=== PATIENT | male | born 1980 | race Caucasian/White ===

== ENCOUNTER 2020-12-19 13:33 | Outpatient (REF) | payer OTHER, SELFPAY | END 2020-12-19 13:34 | disposition home or self-care (01) | LOC: HO.LAB 13:33 | PROVIDERS: Visit Provider Internal Medicine | DX: Z20.822 Contact with and (suspected) exposure to COVID-19 (principal) | CPT/HCPCS: 36415; C9803; U0003 ==

== ENCOUNTER 2021-05-03 12:34 | Outpatient (REF) | payer OTHER, SELFPAY ==
[2021-05-03 14:47] LABS: Alanine Aminotransferase 27 U/L (0-40); Alkaline Phosphatase 147 U/L (39-117); Anion Gap 17 (12-20); Aspartate Amino Transferase 47 U/L (5-37); Bilirubin Direct 0.3 mg/dL (0.0-0.5); Bilirubin Total 0.8 mg/dL (0.0-1.0); Blood Urea Nitrogen 8 mg/dL (9-16); Calcium 9.6 mg/dL (8.4-10.2); Carbon Dioxide 30 mmol/L (22-29); Chloride 95 mmol/L (96-108); Estimated Glomerular Filt Rate > 60; Glucose Random 133 mg/dL (60-115); Potassium 4.4 mmol/L (3.3-5.1); Sodium 138 mmol/L (135-145); Total Protein 8.5 g/dL (6.5-8.0)
[2021-05-04 11:47] LABS: LDL Cholesterol Direct 144 mg/dL (<100)
== END 2021-05-03 12:35 | disposition home or self-care (01) ==
LOC: HO.HMGCLDS 12:34
PROVIDERS: PCP Internal Medicine; Visit Provider Internal Medicine
DX: I10 Essential (primary) hypertension (principal)
CPT/HCPCS: 36415; 80048; 80076; 83721

== ENCOUNTER 2022-02-06 13:39 | Outpatient (REF) | payer OTHER, SELFPAY ==
[2022-02-06 16:36] LABS: MANUAL DIFF FLAG NO
[2022-02-06 16:39] LABS: Basophils Percent Auto 0.4 % (0-2); Eosinophils Absolute Auto 0.1 X10*3/uL (0.0-0.4); Eosinophils Percent Auto 1.2 % (0-4); Hemoglobin 13.6 g/dl (14.0-18.0); Imm Gran Abs Auto 0.01 X10*3/uL (0.00-0.03); Imm Gran Pct Auto 0.1 % (0.0-0.4); Lymphocytes Absolute Auto 2.2 X10*3/uL (1.2-4.9); Lymphocytes Percent Auto 29.6 % (20-40); Mean Corpuscular HGB Conc 33.2 g/dl (31.0-36.0); Mean Corpuscular Hemoglobin 33.3 pg (27.0-33.0); Mean Corpuscular Volume 100.2 fL (80.0-98.0); Mean Platelet Volume 9.9 fL (9.4-12.4); Monocytes Absolute Auto 0.5 X10*3/uL (0.1-1.2); Monocytes Percent Auto 7.1 % (2-11); Neutrophils Absolute Auto 4.5 x10*3/uL (2.0-8.3); Neutrophils Percent Auto 61.6 % (45-73); Platelet Count 208 X10*3/uL (160-400); Red Blood Count 4.09 X10*6/uL (4.60-5.80); Red Cell Distribution Width 12.5 % (11.0-16.0); White Blood Count 7.3 X10*3/uL (4.8-10.8)
[2022-02-06 16:48] LABS: Alanine Aminotransferase 12 U/L (0-40); Albumin Level 3.9 g/dL (3.5-5.0); Alkaline Phosphatase 97 U/L (39-117); Anion Gap 13 (12-20); Aspartate Amino Transferase 19 U/L (5-37); Bilirubin Total 0.5 mg/dL (0.0-1.0); Blood Urea Nitrogen 12 mg/dL (9-16); Calcium 9.2 mg/dL (8.4-10.2); Carbon Dioxide 28 mmol/L (22-29); Chloride 102 mmol/L (96-108); Cholesterol 177 mg/dL; Estimated Glomerular Filt Rate > 60; Glucose Fasting 90 mg/dL (60-99); HDL Cholesterol 39 mg/dL; LDL Cholesterol Calculated 86 mg/dl; Potassium 3.9 mmol/L (3.3-5.1); Sodium 139 mmol/L (135-145); Total Protein 7.4 g/dL (6.5-8.0); Triglycerides 263 mg/dL
[2022-02-06 17:08] LABS: TSH reflex Free T4 2.41 uIU/mL (0.32-4.0)
== END 2022-02-06 13:40 | disposition home or self-care (01) ==
LOC: HO.HMGCLDS 13:39
PROVIDERS: PCP Internal Medicine; Visit Provider Internal Medicine
DX: I10 Essential (primary) hypertension (principal); I82.401 Acute embolism and thrombosis of unspecified deep veins of right lower extremity
CPT/HCPCS: 36415; 80053; 80061; 84443; 85025

== ENCOUNTER 2022-02-20 15:03 | Outpatient (REF) | payer OTHER, SELFPAY ==
--- NOTE | ~2022-02-20 | US_ITS ---
EXAMINATION: US VENOUS ULTRASOUND WITH DOPPLER LOWER EXTREMITY, RIGHT CLINICAL INFORMATION: History of DVT. On anticoagulation for 6 months. COMPARISON: None TECHNIQUE: Ultrasound of the deep veins is performed from the hip to the calf with compression sonography and color and pulse Doppler assessment. Spectral analysis with color-flow imaging is performed. FINDINGS: There is normal venous compression and respiratory variation and augmented flow. The visualized common femoral vein, superficial femoral vein, profunda femoral vein, popliteal vein, and the trifurcation region shows no evidence of deep venous thrombosis. There is a small right May's cyst measuring 4.1 x 1.5 x 1.6 cm. Incidental finding of a small right inguinal lymph node measuring 2.3 x 0.8 cm. If the patient's symptoms persist, followup ultrasound in 5 days 7 days might be of value to exclude proximal propagation from a non-visualized calf vein. US/US venous duplex LE RT IMPRESSION: No DVT demonstrated in the right lower extremity.
== END 2022-02-20 15:04 | disposition home or self-care (01) ==
LOC: HO.US 15:03
PROVIDERS: PCP Internal Medicine; Visit Provider Internal Medicine
DX: I82.401 Acute embolism and thrombosis of unspecified deep veins of right lower extremity (principal)
CPT/HCPCS: 93971

== ENCOUNTER 2023-07-03 13:43 | Outpatient (AMB) | payer OTHER, SELFPAY ==
--- NOTE | 2023-07-03 13:45 | MHC.PC.OV ---
Vital Signs 07/03/23 13:47 Height 6 ft 1 in Weight 176 lb BMI 23.2 BP 118/90 H Blood Pressure Location Lt brachial Position Sitting Pulse 117 H Pulse Source Pulse Oximeter Pulse Oximetry (%) 96 Intake Visit Reasons: follow up/med refill Allergies vancomycin Allergy (Unknown, Verified 07/03/23 13:48) anaphylaxis Medication List - Last Reconciled 07/03/23 by Angie Padilla MD atenolol 50 mg PO DAILY 90 days methadone 120 mg PO DAILY Tobacco use date assessed: 07/03/23 Dental Screening Dental Screen Date: 07/03/23 Did you have a dental visit in the last 12 months?: Yes Did you have a dental problem in the last 6 months where you did not have access to dental care?: Yes Was dental information given to patient?: Patient has dentist HPI follow up/med refill HPI Details Patient is a 42-year-old gentleman who has return after more than a year Patient was on atenolol 50 mg which he stopped taking when he lost a lot of weight Patient started using intravenous heroin and cocaine Currently he is in rehab and is on methadone Patient says that he was very depressed and he still is depressed I have sent message to our behavior health coordinator to reach out to patient. Meanwhile I have ordered labs for him I have also ordered STD screening His blood pressure is 118/90 but his heart rate is 117. I have sent atenolol 25 mg because of his tachycardia. He is to return in 4 weeks for follow-up [facility] Medical History HTN (hypertension) Surgical History History of arm fracture Family History Father Mesothelioma Paternal Grandmother Lung cancer Maternal Grandmother Kidney disease HTN (hypertension) Other Substance use disorder Social History Housing: Apartment Alcohol intake: current Alcohol intake frequency: a few times a week Patient Tobacco Use Status: Current everyday Tobacco user Cigarette Packs Per Day: 0.5 e-Cigarette/Vaping Use: Never Used Substance Use Type: IV Drugs Current occupational status: employed Cognitive needs: No Hearing needs: No Vision needs: No Questionnaire PHQ-9 Over the last 2 weeks, how often have you been bothered by any of the following problems? 1. Little interest or pleasure in doing things: not at all 2. Feeling down, depressed, or hopeless: not at all 3. Trouble falling or staying asleep, or sleeping too much: not at all 4. Feeling tired or having little energy: not at all 5. Poor appetite or overeating: not at all 6. Feeling bad about yourself - or that you are a failure or have let yourself or your family down: not at all 7. Trouble concentrating on things, such as reading the newspaper or watching television: not at all 8. Moving or speaking so slowly that other people could have noticed. Or the opposite - being so fidgety or restless that you have been moving around a lot more than usual: not at all 9. Thoughts that you would be better off or of hurting yourself in some way: not at all Total score: 0 Source: Developed by Drs. Andrew Simmons, Yulisa Negrete, Cisco Colunga and colleagues, with an educational yolie from [employer]. Thrive Questionnaire Date Thrive assessed: 07/03/23 I am a: Patient What is your living situation today?: I have a steady place to live Within the past 12 months, did the food you bought not last and you didn't have the money to get more?: Never true Within the past 12 months, did you worry whether your food would run out before you got money to buy more?: Never true Do you have trouble paying for medicines?: No Do you have trouble getting transportation to medical appointments?: No Do you have trouble paying your heating and electricity bill?: No Do you have trouble taking care of your child, family member or friend?: No Do you have trouble with day-to-day activities such as bathing, preparing meals, shopping, managing finances, etc.?: No Are you currently unemployed and looking for a job?: No Are you interested in more education?: No AUDIT C Alcohol Use Questionnaire (AUDIT-C) 1. How often do you have a drink containing alcohol?: 2-3 times a week 2. How many drinks containing alcohol do you have on a typical day when you are drinking?: 1 or 2 3. How often do you have six or more drinks on one occasion?: Never Total Score: 3 LAINE-7 AMB Questionnaire LAINE-7 Date LAINE - 7 assessed: 07/03/23 Feeling nervous, anxious, or on edge: 0 = Not at all Not being able to stop or control worryin = Not at all Worrying too much about different things: 0 = Not at all Trouble relaxin = Not at all Being so restless that it is hard to sit still: 0 = Not at all Becoming easily annoyed or irritable: 0 = Not at all Feeling afraid as if something awful might happen: 0 = Not at all Total LAINE-7 score (0-4 normal; 5-9 mild; 10-14 moderate; 15-21 severe): 0 Source: Developed by Drs. Andrew Simmons, Yulisa Negrete, Cisco Colunga and colleagues, with an educational yolie from [employer]. Review of Systems Const Denies chills and Denies fever(s) ENT Denies epistaxis and Denies nasal discharge Card Denies chest pain Resp Denies chest congestion, Denies cough and Denies hemoptysis GI Denies diarrhea and Denies nausea Skin/Breast Denies rash Neuro Reports no additional complaints Psych Reports no additional complaints Endo Reports no additional complaints Physical exam (Primary Care) Vital Signs: Last Vital Signs Pulse 117 H 07/03/23 13:47 BP 118/90 H 07/03/23 13:47 Pulse Ox 96 07/03/23 13:47 BMI result Body Mass Index 23.2 Tobacco/Smoking Status: Tobacco use Status Tobacco use date assessed 07/03/23 07/03/23 13:51 Patient Tobacco Use Status Current everyday Tobacco 07/03/23 13:45 e-Cigarette/Vaping Use Never Used 07/03/23 13:51 PHQ-9: PHQ-9 Score PHQ-9: Total score 0 07/03/23 14:03 Thrive Assessment: Date of Thrive Assessment Date Thrive assessed 07/03/23 07/03/23 13:51 Const General: cooperative, comfortable and no acute distress Orientation/consciousness: patient oriented x3 HENMT Head: Yes normocephalic Eyes General: appearance normal, both eyes and all related structures Neck Neck: Yes supple Resp Effort & Inspection: normal respiratory effort, no cough and no stridor Cardio Rhythm: regular rhythm Heart sounds: S1 normal heart sound present and S2 normal heart sound present Skin General skin exam: turgor normal Neuro General: patient oriented x3, tone normal and moves all extremities Extrem Right lower extremity: no edema Left lower extremity: no edema Assessment and Plan Assessment & Plan (1) Hypertension, essential: Code(s): I10 - Essential (primary) hypertension (2) Intravenous drug abuse: Code(s): F19.10 - Other psychoactive substance abuse, uncomplicated (3) Cocaine abuse: Code(s): F14.10 - Cocaine abuse, uncomplicated (4) Major depression, recurrent: Code(s): F33.9 - Major depressive disorder, recurrent, unspecified Plan Patient is a 42-year-old gentleman who has return after more than a year Patient was on atenolol 50 mg which he stopped taking when he lost a lot of weight Patient started using intravenous heroin and cocaine Currently he is in rehab and is on methadone Patient says that he was very depressed and he still is depressed I have sent message to our behavior health coordinator to reach out to patient. Meanwhile I have ordered labs for him I have also ordered STD screening His blood pressure is 118/90 but his heart rate is 117. I have sent atenolol 25 mg because of his tachycardia. He is to return in 4 weeks for follow-up Orders: Orders Comprehensive [place]. Panel Fast Today F14.10 - Cocaine abuse, uncomplicated, F19.10 - Other psychoactive substance abuse, uncomplicated, F33.9 - Major depressive disorder, recurrent, unspecified, I10 - Essential (primary) hypertension Lipid Panel Today F14.10 - Cocaine abuse, uncomplicated, F19.10 - Other psychoactive substance abuse, uncomplicated, F33.9 - Major depressive disorder, recurrent, unspecified, I10 - Essential (primary) hypertension TSH reflex Free T4 Today F14.10 - Cocaine abuse, uncomplicated, F19.10 - Other psychoactive substance abuse, uncomplicated, F33.9 - Major depressive disorder, recurrent, unspecified, I10 - Essential (primary) hypertension Complete Blood Count Auto Diff Today F14.10 - Cocaine abuse, uncomplicated, F19.10 - Other psychoactive substance abuse, uncomplicated, F33.9 - Major depressive disorder, recurrent, unspecified, I10 - Essential (primary) hypertension Hepatitis A,B,C Profile Today F14.10 - Cocaine abuse, uncomplicated, F19.10 - Other psychoactive substance abuse, uncomplicated, F33.9 - Major depressive disorder, recurrent, unspecified, I10 - Essential (primary) hypertension Herpes Simplex Virus Ab IgG Today F14.10 - Cocaine abuse, uncomplicated, F19.10 - Other psychoactive substance abuse, uncomplicated, F33.9 - Major depressive disorder, recurrent, unspecified, I10 - Essential (primary) hypertension HIV Ab/Ag Today F14.10 - Cocaine abuse, uncomplicated, F19.10 - Other psychoactive substance abuse, uncomplicated, F33.9 - Major depressive disorder, recurrent, unspecified, I10 - Essential (primary) hypertension Syphilis Screen Today F14.10 - Cocaine abuse, uncomplicated, F19.10 - Other psychoactive substance abuse, uncomplicated, F33.9 - Major depressive disorder, recurrent, unspecified, I10 - Essential (primary) hypertension Medications: Refilled atenolol 50 mg PO DAILY 90 tabs 0RF 90 days I10 - Essential (primary) hypertension Coding Level of Care Code Est Pt Level 4 (98421) Diagnoses Hypertension, essential I10 Intravenous drug abuse F19.10 Cocaine abuse F14.10 Major depression, recurrent F33.9
[2023-07-03 13:47] VITALS: BP 118/90; PULSE 117; O2SAT 96; BMI 23.2
== END 2023-07-03 14:11 | disposition home or self-care (01) ==
PROVIDERS: PCP Internal Medicine; Visit Provider Internal Medicine
DX: I10 Essential (primary) hypertension (principal); F19.10 Other psychoactive substance abuse, uncomplicated; F14.10 Cocaine abuse, uncomplicated; F33.9 Major depressive disorder, recurrent, unspecified
CPT/HCPCS: 99214

== ENCOUNTER 2023-07-03 14:06 | Outpatient (REF) | payer OTHER, SELFPAY ==
[2023-07-03 16:10] LABS: MANUAL DIFF FLAG NO
[2023-07-03 16:15] LABS: Basophils Percent Auto 0.6 % (0-2); Eosinophils Percent Auto 0.3 % (0-4); Hematocrit 44.6 % (42.0-52.0); Hemoglobin 15.1 g/dl (14.0-18.0); Imm Gran Abs Auto 0.02 X10*3/uL (0.00-0.03); Imm Gran Pct Auto 0.6 % (0.0-0.4); Lymphocytes Absolute Auto 0.8 X10*3/uL (1.2-4.9); Lymphocytes Percent Auto 22.1 % (20-40); Mean Corpuscular HGB Conc 33.9 g/dl (31.0-36.0); Mean Corpuscular Hemoglobin 29.8 pg (27.0-33.0); Mean Platelet Volume 10.9 fL (9.4-12.4); Monocytes Absolute Auto 0.2 X10*3/uL (0.1-1.2); Monocytes Percent Auto 5.2 % (2-11); Neutrophils Absolute Auto 2.5 x10*3/uL (2.0-8.3); Neutrophils Percent Auto 71.2 % (45-73); Platelet Count 136 X10*3/uL (160-400); Red Blood Count 5.07 X10*6/uL (4.60-5.80); White Blood Count 3.4 X10*3/uL (4.8-10.8)
[2023-07-03 16:39] LABS: Alanine Aminotransferase 76 U/L (0-40); Albumin Level 3.2 g/dL (3.5-5.0); Alkaline Phosphatase 396 U/L (39-117); Anion Gap 15 (12-20); Aspartate Amino Transferase 95 U/L (5-37); Bilirubin Total 0.9 mg/dL (0.0-1.0); Blood Urea Nitrogen 13 mg/dL (9-16); Calcium 9.3 mg/dL (8.4-10.2); Carbon Dioxide 25 mmol/L (22-29); Chloride 96 mmol/L (96-108); Cholesterol 124 mg/dL; Estimated Glomerular Filt Rate > 60; Glucose Fasting 86 mg/dL (60-99); HDL Cholesterol 17 mg/dL; LDL Cholesterol Calculated 68 mg/dl; Potassium 4.2 mmol/L (3.3-5.1); Sodium 132 mmol/L (135-145); Triglycerides 198 mg/dL
[2023-07-04 05:44] LABS: HBS Num1 423.18 mIU/mL (0-7.99); HBc Num1 0.24 S/CO (0.00-0.79); HIV AB/AG Nonreactive (Nonreactive); HIV Num 1 0.06 S/CO (0.00-0.99); Hepatitis A Antibody IgM 0.56 Index (0-0.79); Hepatitis B Core Antibody Nonreactive (Nonreactive); Hepatitis B Surface Antigen Negative (Negative); ~HepC Num1 14.22 S/CO (0.00-0.79); ~Hepatitis A Antibody IgM Nonreactive (Nonreactive); ~Hepatitis B Surface Antibody REACTIVE (Nonreactive); ~Hepatitis C Antibody Reactive (Nonreactive)
[2023-07-05 05:06] LABS: Syphilis Screen Nonreactive (Nonreactive)
[2023-07-05 07:17] LABS: Herpes Simplex Type 2 IgG 6.25 index
== END 2023-07-03 14:07 | disposition home or self-care (01) ==
LOC: HO.HMGCLDS 14:06
PROVIDERS: PCP Internal Medicine; Visit Provider Internal Medicine
DX: Z11.4 Encounter for screening for human immunodeficiency virus [HIV] (principal); F14.10 Cocaine abuse, uncomplicated; F19.10 Other psychoactive substance abuse, uncomplicated; F33.9 Major depressive disorder, recurrent, unspecified; I10 Essential (primary) hypertension
CPT/HCPCS: 36415; 80053; 80061; 84443; 85025; 86695; 86696; 86704; 86706; 86709; 86780; 86803; 87340; 87389

== ENCOUNTER 2024-05-14 09:34 | Outpatient (AMB) | payer OTHER, SELFPAY ==
[2024-05-14 09:42] VITALS: BP 110/72; PULSE 71; TEMP 36.2; O2SAT 95; BMI 26.4
--- NOTE | 2024-05-14 09:42 | AM.OFFWIN_ITS ---
Intake Vital Signs 05/14/24 09:42 Height 6 ft 1 in Weight 200 lb BMI 26.4 BP 110/72 Blood Pressure Location Lt brachial Position Sitting Pulse 71 Pulse Source Pulse Oximeter Temp 97.1 F Temp Source Temporal Artery Scan Pulse Oximetry (%) 95 Oxygen Delivery Method Room Air Intake Visit Reasons: EP Ekg/ok per Linda Intake Note: pt is here today for EKG Patient Tobacco Use Status: Current everyday Tobacco user Allergies vancomycin Allergy (Unknown, Verified 05/14/24 09:49) anaphylaxis Do you need a note to return to daycare/school/sports/work: No HPI HPI Comments History of Present Illness Details Patient is a 43-year-old male who is taking daily methadone and is as irma for an EKG as required by his methadone clinic. Patient states he has been taking methadone for over 10 years and his dose is now greater than 120 mg daily so they require a EKG to be done, he has a request from the clinic in hand today. He denies any symptoms such as lightheadedness, sweating, dizziness, nausea, vomiting or diarrhea. [facility] Medical History HTN (hypertension) Surgical History History of arm fracture Family History Father Mesothelioma Paternal Grandmother Lung cancer Maternal Grandmother Kidney disease HTN (hypertension) Other Substance use disorder Social History Housing: Apartment Alcohol intake: current Alcohol intake frequency: a few times a week Patient Tobacco Use Status: Current everyday Tobacco user Cigarette Packs Per Day: 0.5 e-Cigarette/Vaping Use: Never Used Substance Use Type: IV Drugs Current occupational status: employed Cognitive needs: No Hearing needs: No Vision needs: No Review of Systems Const All systems reviewed & are unremarkable except as noted in HPI and below Physical Exam Vital Signs: Last Vital Signs Temp 97.1 F 05/14/24 09:42 Pulse 71 05/14/24 09:42 BP 110/72 05/14/24 09:42 Pulse Ox 95 05/14/24 09:42 Oxygen Delivery Method Room Air 05/14/24 09:42 BMI result Body Mass Index 26.4 Const General: cooperative, healthy appearing, comfortable, no acute distress and well developed Orientation/consciousness: patient oriented x3 Limitations: no limitations HEENT Head: Yes normal to inspection Eyes General: appearance normal, both eyes and all related structures Neck Neck: Yes normal visual inspection and Yes full ROM Resp Effort & Inspection: normal respiratory effort and able to speak in complete sentences Skin General skin exam: no rashes or lesions noted Neuro General: patient oriented x3 Extrem General: Yes normal to inspection Office Procedures EKG 23535-[id number], Complete Assessment & Plan Assessment & Plan (1) Methadone use: Code(s): F11.90 - Opioid use, unspecified, uncomplicated Plan: EKG in office shows Qtc as 452, advised patient so he can report back to his methadone clinic and continue taking his methadone. Plan See above Coding Level of Care Code Est Pt Level 3 (98842) Diagnoses 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 CPT Codes EKG - CPT: 48193-[id number], Complete ([id number])
== END 2024-05-14 11:55 | disposition home or self-care (01) ==
PROVIDERS: PCP Internal Medicine; Visit Provider Physician Assistant
DX: F11.90 Opioid use, unspecified, uncomplicated (principal)
CPT/HCPCS: 93000; 99213

== ENCOUNTER → 2025-01-05 09:25 | Outpatient (BNVA) | payer OTHER, SELFPAY | PROVIDERS: PCP Internal Medicine; Visit Provider Internal Medicine ==

== ENCOUNTER 2025-09-07 15:28 | Outpatient (AMB) | payer OTHER, SELFPAY ==
[2025-09-07 15:31] VITALS: BP 180/90; PULSE 96; TEMP 36.6; O2SAT 97; BMI 32.3
--- NOTE | 2025-09-07 15:31 | AM.OFFWIN_ITS ---
Intake Vital Signs 09/07/25 15:31 Height 6 ft 1 in Weight 245 lb BMI 32.3 BP 180/90 H Blood Pressure Location Rt brachial Position Sitting Pulse 96 Pulse Source Pulse Oximeter Temp 97.9 F Temp Source Oral Pulse Oximetry (%) 97 Oxygen Delivery Method Room Air Intake Visit Reasons: EP Pain in upper stomach, Left ankle swelling Intake Note: Pt presents with concern for left ankle recurrent swelling, seen at [facility] 3 weeks ago- was on abx for a week. Also c/o numbness and painful epigastric area with pain on LT >RT for a few weeks. Patient Tobacco Use Status: Current everyday Tobacco user Allergies vancomycin Allergy (Severe, Verified 09/07/25 15:35) anaphylaxis Do you need a note to return to daycare/school/sports/work: No HPI HPI Comments History of Present Illness Details History of Present Illness - The patient is a 44-year-old male pres enting with multiple complaints. - He states that he has not been seen in awhile, most recently cancelled his appt in Aug. - The patient has a history of hypertens ion for which he was prescribed atenolol approximately three to four years ago. - He has not taken the medication for ab out a year, resulting in consistently high blood pressure readings. - The patient reports no current use of antihypertensive medications and expresses concern about fluid retention, especially in the left lower leg. - He has been to the ER in July for th e leg and was ruled out for DVT. - He was treated with antibiotics for a cellulitis and it had seemed to get better, but symptoms have recurred intermittently. - The patient denies any injection drug use in the affected area. - The patient reports a history of subst ance use, including heroin and cocaine, with the last use of cocaine four days ago. - He is currently on methadone maintenan ce therapy and occasionally uses alcohol and marijuana. - The patient consumes alcohol daily, va rying from a few drinks to a pint of vodka. - He denies any symptoms of liver dysfun ction such as jaundice or abdominal pain. - The patient has epigastric pain and f eels like there is fluid in the area . - He describes a hole in his chest at . - He denies CP, SOB, back pain, diarrhea , nausea, vomiting, hematochezia, melena, skin changes. - He denies calf pain, UGALDE, redness, war mth, injury, fever, or chills. Physical Exam General: Cooperative, tearful, comfortable, no acute distress and well developed Orientation: Patient oriented x3 Limitations: No limitations Head: Normal to inspection Eyes: Appearance normal, both eyes and all related structures. No icterus noted. Neck: Normal visual inspection and Yes full ROM Respiratory: Normal respiratory effort and able to speak in complete sentences. Clear to auscultation bilaterally. No w/r/r noted. Cardiovascular: Regular rate and rhythm. Normal S1 and S2. No m/r/g noted. GI: Normal to inspection. Soft to palpation and nontender, distended, not obtunded. Hypoactive BS noted. No guarding or rebound tenderness noted. Skin: No rashes or lesions noted. No jaundice noted. Neuro: Patient oriented x3 Extremities: Swollen ankle noted on the left. 2-3+ edema noted. No erythema noted. No calf tenderness noted. Patient was informed and verbally consented to the use of an ambient scribe for clinic note documentation during this visit. [facility] Medical History HTN (hypertension) Surgical History History of arm fracture Family History Father Mesothelioma Paternal Grandmother Lung cancer Maternal Grandmother Kidney disease HTN (hypertension) Other Substance use disorder Social History Housing: Apartment Alcohol intake: current Alcohol intake frequency: a few times a week Patient Tobacco Use Status: Current everyday Tobacco user Cigarette Packs Per Day: 0.5 e-Cigarette/Vaping Use: Never Used Substance Use Type: IV Drugs Current occupational status: employed Cognitive needs: No Hearing needs: No Vision needs: No Review of Systems Const All systems reviewed & are unremarkable except as noted in HPI and below Physical Exam Vital Signs: Last Vital Signs Temp 97.9 F 09/07/25 15:31 Pulse 96 09/07/25 15:31 BP 180/90 H 09/07/25 15:31 Pulse Ox 97 09/07/25 15:31 Oxygen Delivery Method Room Air 09/07/25 15:31 BMI result Body Mass Index 32.3 Assessment & Plan Assessment & Plan (1) Epigastric pain: Code(s): R10.13 - Epigastric pain (2) HTN (hypertension): Code(s): I10 - Essential (primary) hypertension Qualifiers: Hypertension type: primary hypertension Qualified Code(s): I10 - Essential (primary) hypertension (3) Leg edema, left: Code(s): R60.0 - Localized edema Plan 1. Essential Hypertension - Immediate antihypertensive therapy is necessary due to high blood pressure. - Consider alternative antihypertensive agents. - check BP at home and document - low salt diet - will send BP cuff to [facility] - Follow-up with primary care for medication management as discussed with his PCP today in the office. 2. leg edema - rest and elevate legs - restart BP medication - suggested compression stockings 3. Substance Use Disorder - Continue methadone maintenance therapy and substance use counseling. - Regular follow-up with addiction services is recommended. 4. epigastric pain likely due to gastritis vs pancreatitis vs hepatitis - pantoprazole given as suggested from his PCP - suggested labs to PCP and she wants patient to see her in Nov for the f/u - diet as tolerated - advised ER if pain worsens, yellow skin, nausea, vomiting, diarrhea, etc Medications: New pantoprazole 20 mg PO DAILY 90 tabs 0RF blood pressure test kit-large (Quick Response BP Monitor-Large Cuff kit) As directed 1 ea 0RF Refilled atenolol 50 mg PO DAILY 90 tabs 0RF 90 days I10 - Essential (primary) hypertension Coding Level of Care Code Est Pt Level 4 (87616) Diagnoses Epigastric pain R10.13 Primary hypertension I10 Hypertension type: primary hypertension Leg edema, left R60.0
--- OUTSIDE RECORDS SUMMARY | 2025-09-07 18:36 | XMS_ITS | Clinical Summary ---
Author Organization [employer] Address [address] [place] [address] Care Team Providers Care Supervisor Shuttle Veneering Name Role Phone Unavailable Primary Care Provider Unavailabl e Social History Tobacco Use Types Packs/Day Years Used Date Smoking Tobacco: Never Assessed Sex and Gender Information Value Date Recorded Sex Assigned at Not on file Legal Sex Male 1:46 PM EST Gender Identity Not on file Sexual Orientation Not on file Plan of Treatment Health Maintenance Due Date Last Done Comments Depression Screening 1981 HIV Screening 1981 Lipid Panel 1981 SDOH Screening 1981 Disability Screening 1981 Alcohol/Substance Use Screening 1993 Tobacco Screening 1993 Family Planning (PISQ) 1996 HPV Vaccines (1 - Male 3-dos e series) 1996 Hepatitis C Screening 1999 DTaP/Tdap/Td Vaccines (1 - Tdap) 2000 Hepatitis B Vaccines (1 of 3 - 19+ 3-dose series) 2000 COVID-19 Vaccine (1 - 2023-2 5 season) 2025 Influenza Vaccine (#1) 2025 Zoster Vaccines (1 of 2) 2031 RSV Patients and Pa tients Aged 60 years or older (1 - 1-dose 75+ series) 2056 HIB Vaccines Aged Out No longer eligi ble based on patient's age to complete this topic Hepatitis A Vaccines Aged Out No long er eligible based on patient's age to complete this topic IPV Vaccines Aged Out No longer eligi ble based on patient's age to complete this topic Meningococcal B Vaccine Aged Out No l onger eligible based on patient's age to complete this topic Meningococcal Vaccine Aged Out No iván kerline eligible based on patient's age to complete this topic Pneumococcal Vaccine: Pediat rics (0 to 5 Years) and At-Risk Patients (6 to 49) Years Aged Out No longer eligible b ased on patient's age to complete this topic RSV under 20 months Aged Out No longe r eligible based on patient's age to complete this topic Rotavirus Vaccines Aged Out No longer eligible based on patient's age to complete this topic
--- OUTSIDE RECORDS SUMMARY | 2025-09-07 18:36 | XMS_ITS | Clinical Summary ---
Author Organization [facility] Address [id number] [place] [id number] Care Team Providers Care Railroad Mechanic Name Role Phone Angie Padilla MD Primary Care Provider [phone] Surgical History Surgery Date Site/Laterality Comments ELBOW SURGERY Right PROCEDURE: HISTORICAL ELBOW SURGERY; COMMENT: ORIF with subsequent pin removal and I&D Medical History Medical History Date Comments Hypertension DX:Hypertension Right leg DVT (CMS/HCC V24, CMS/HCC V28) DX:Right leg DVT (HCC) Heroin dependence (CMS/HCC V24, CMS/HCC V28) DX:Heroin dependence (HCC) Social History Tobacco Use Types Packs/Day Years Used Date Smoking Tobacco: Every Day Smokeless Tobacco: Never Alcohol Use Standard Drinks/Week Comments Yes 0 (1 standard drink = 0.6 oz pur e alcohol) Sex and Gender Information Value Date Recorded Sex Assigned at Not on file Legal Sex Male 3:40 PM EST Gender Identity Not on file Sexual Orientation Not on file Obstetrics History Plan of Treatment Health Maintenance Due Date Last Done Comments DTaP,Tdap,and Td Vaccines (1 - Tdap) 2000 Hepatitis B Vaccines (1 of 3 - 19+ 3-dose series) 2000 HPV Vaccines (1 - 3-dose SCD M series) 2008 Depression Screening 12/02/2024 COVID-19 Vaccine (1 - 2023-2 5 season) 2025 Influenza Vaccine (#1) 2025 RSV Immunization Adult Patie nts (1 - 1-dose 75+ series) 2056 HIB Vaccines Aged Out No longer eligi ble based on patient's age to complete this topic Hepatitis A Vaccines Aged Out No long er eligible based on patient's age to complete this topic IPV Vaccines Aged Out No longer eligi ble based on patient's age to complete this topic MMR Vaccines Aged Out No longer eligi ble based on patient's age to complete this topic Meningococcal ACWY Vaccine Aged Out N o longer eligible based on patient's age to complete this topic Meningococcal B Vaccine Aged Out No l onger eligible based on patient's age to complete this topic Pneumococcal Vaccine: Pediat rics (0 to 5 Years) and At-Risk Patients (6 to 49 Years) Aged Out No longer eligible b ased on patient's age to complete this topic RSV Immunization Patients Un hector 20 months Aged Out No longer eligible b ased on patient's age to complete this topic Varicella Vaccines Aged Out No longer eligible based on patient's age to complete this topic Care Teams Railroad Mechanic Relationship Specialty Start Date End Date Angie Padilla MD [address] [place] [id number] PCP - General Internal Medicine 12/02/20
== END 2025-09-07 16:28 | disposition home or self-care (01) ==
PROVIDERS: PCP Internal Medicine; Visit Provider Physician Assistant Medical
DX: R10.13 Epigastric pain (principal); I10 Essential (primary) hypertension; R60.0 Localized edema

== ENCOUNTER → 2025-09-07 15:28 | Outpatient (BNVA) | payer OTHER, SELFPAY | PROVIDERS: PCP Internal Medicine; Visit Provider Physician Assistant Medical | DX: I10 Essential (primary) hypertension (principal); R10.13 Epigastric pain; F11.20 Opioid dependence, uncomplicated; R60.0 Localized edema | CPT/HCPCS: 99212 ==

== ENCOUNTER 2025-10-12 14:11 | Outpatient (REF) | payer OTHER, SELFPAY ==
--- NOTE | ~2025-10-12 | XR_ITS ---
EXAMINATION: XR STERNUM CLINICAL INFORMATION: R07.89 - Other chest pain COMPARISON: None available. TECHNIQUE: Oblique and lateral views. FINDINGS: No acute depressed cortical disruption. Limited examination XR/XR sternum min 2V IMPRESSION: . Limited exam demonstrated no gross fracture. Electronically signed by: Dat Zimmerman MD 10/12/2025 03:16 PM [facility]
[2025-10-12 16:14] LABS: MANUAL DIFF FLAG NO
[2025-10-12 16:27] LABS: Hematocrit 43.9 % (42.0-52.0); Hemoglobin 14.1 g/dl (14.0-18.0); Imm Gran Abs Auto 0.02 X10*3/uL (0.00-0.03); Imm Gran Pct Auto 0.3 % (0.0-0.4); Lymphocytes Absolute Auto 1.5 X10*3/uL (1.2-4.9); Mean Corpuscular HGB Conc 32.1 g/dl (31.0-36.0); Mean Corpuscular Hemoglobin 29.7 pg (27.0-33.0); Mean Corpuscular Volume 92.4 fL (80.0-98.0); NRBC Abs Auto 0.000 X10*3/uL (0.0-0.012); NRBC Pct Auto 0.0 /100WBC (0.0-0.2); Platelet Count 164 X10*3/uL (160-400); Red Blood Count 4.75 X10*6/uL (4.60-5.80); White Blood Count 6.7 X10*3/uL (4.8-10.8)
[2025-10-12 16:52] LABS: Alanine Aminotransferase 33 U/L (0-40); Albumin Level 4.6 g/dL (3.5-5.0); Alkaline Phosphatase 118 U/L (39-117); Anion Gap 13 (12-20); Aspartate Amino Transferase 36 U/L (5-37); Blood Urea Nitrogen 18 mg/dL (9-16); Calcium 9.6 mg/dL (8.4-10.2); Carbon Dioxide 28 mmol/L (22-29); Chloride 101 mmol/L (96-108); Estimated Glomerular Filt Rate > 60; Potassium 4.0 mmol/L (3.3-5.1); Sodium 138 mmol/L (135-145); Total Protein 8.9 g/dL (6.5-8.0)
[2025-10-12 17:10] LABS: Cannabinoid Screen Urine POSITIVE (Not Detect)
[2025-10-14 23:53] LABS: HCV Log PCR <1.18 NOT DETECTED Log IU/mL (NOT DETECTED); HepC Viral Load <15 NOT DETECTED IU/mL (NOT DETECTED)
== END 2025-10-12 14:12 | disposition home or self-care (01) ==
LOC: HO.HMGCX 14:11
PROVIDERS: PCP Internal Medicine; Visit Provider Internal Medicine
DX: Z00.01 Encounter for general adult medical examination with abnormal findings (principal); I10 Essential (primary) hypertension; R76.89 Other specified abnormal immunological findings in serum; R07.89 Other chest pain; F14.11 Cocaine abuse, in remission; R14.0 Abdominal distension (gaseous); F19.10 Other psychoactive substance abuse, uncomplicated; F11.20 Opioid dependence, uncomplicated; Z79.899 Other long term (current) drug therapy
CPT/HCPCS: 71120; 80053; 80307; 83721; 84443; 85025; 87522; 96127; 99212; 99396

== ENCOUNTER 2025-10-12 14:11 | Outpatient (AMB) | payer OTHER, SELFPAY ==
[2025-10-12 14:15] VITALS: BP 156/100; PULSE 87; RESP 17; TEMP 36.7; O2SAT 95; BMI 31.9
--- NOTE | 2025-10-12 14:15 | A.OFFPC_ITS ---
Vital Signs 10/12/25 14:15 Height 6 ft 1 in Weight 242 lb BMI 31.9 BP 156/100 H Blood Pressure Location Lt brachial Position Sitting Respiration 17 Pulse 87 Pulse Source Pulse Oximeter Temp 98.0 F Temp Source Oral Pulse Oximetry (%) 95 Oxygen Delivery Method Room Air Intake Visit Reasons: Annual pe Allergies vancomycin Allergy (Severe, Verified 10/12/25 14:16) anaphylaxis Medication List - Last Reconciled 10/12/25 by Angie Padilla MD atenolol 50 mg PO DAILY 90 days blood pressure test kit-large (Quick Response BP Monitor-Large Cuff kit) As directed methadone 120 mg PO DAILY pantoprazole 20 mg PO DAILY Tobacco use date assessed: 10/12/25 Dental Screening Dental Screen Date: 10/12/25 Did you have a dental visit in the last 12 months?: Yes Did you have a dental problem in the last 6 months where you did not have access to dental care?: No Was dental information given to patient?: Patient has dentist HPI Annual pe HPI Details History of Present Illness The patient is a 45 year old male presenting for a physical exam. Last time seen was 2022 Hypertension: - The patient has a history of hypertens ion and had previously stopped his medication. - He was seen at a walk-in clinic in Sep with a blood pressure of 180/90 mmHg and was restarted on atenolol 50 mg. Substance Use Disorder: - The patient has a history of cocaine a nd alcohol abuse. - He reports being clean for a year but has had a relapse with heroin, which he injects, and cocaine, which he sniffs. - He is currently on methadone and is wo rking with his counselor regarding his relapse. Chronic GERD: - The patient has a history of chronic G ERD and had previously stopped his medication, but was restarted on pantoprazole 20 mg Chronic Hepatitis C: - The patient has a known history of ellie ng hepatitis C positive. Ankle Edema - A couple of months ago, his ankle swel led up . - He states the swelling is better but t he left ankle is still slightly larger than his other one and is sometimes itchy. Abdominal Wall distenstion and lower sternal lump: - The patient reports a lump on lower pa rt of sternum. - He also reports an area of numbness ov er his stomach, where he can feel movement but not the sensation of scratching. 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 - He denies any injury to the area. Medical History: - Hypertension - Chronic gastroesophageal reflux diseas e - Cocaine abuse - Alcohol abuse - Heroin abuse - Hepatitis C positive - Pectus excavatum, congenital - abdominal distention Health Maintenance - A flu vaccine was offered, but the pat ient declined, stating he is currently taking cefdinir. [place] of Care The patient is working with a counselor at his methadone program. Medications - Atenolol 50 mg for hypertension - Pantoprazole 20 mg for chronic GERD - Methadone Employment - The patient reports that Saturday is s only day off. Patient Instructions - Spironolactone 50 mg has been added to your medications; take it in the morning along with your atenolol. - Continue taking your current dose of a tenolol 50 mg. - Go for blood tests and a chest x-ray t benedict. - An ultrasound of your belly will be sc heduled for you, and the clinic will let you know the appointment details. - Check out at the patient coordinator front desk to satinder mckeon a follow-up appointment in about 10 days to review your results. and to check BP Review of Systems - General: No fever no chills - Neurological: No headaches no dizzin ess - Ear nose throat: No sore throat no hearing difficulty no ear pain - Cardiovascular: No syncope, no chest pain, no palpitations - Gastrointestinal: No nausea vomiting or diarrhea Physical Exam General: Cooperative, healthy appearing, comfortable, no acute distress Orientation: Patient oriented x3 Head: Normal to inspection Ears: Within normal limit visually Nose: Normal external nose present Face and sinus: Normal facial exam Eyes: Appearance normal, extraocular movement intact pupils reactive, eyes slightly icterus Neck: Normal visual inspection and supple Respiratory: Normal respiratory effort and able to speak in complete sentences. Clear to auscultation, no stridor Cardiovascular: S1 and S2 RRR chest : lower part of sternum with lump non tender GI: non tender but distended, fluid thrill slight + Skin: Turgor normal Neuro: Patient oriented x3, motor intact Extremities: no swelling today . [facility] Medical History HTN (hypertension) Surgical History History of arm fracture Family History Father Mesothelioma Paternal Grandmother Lung cancer Maternal Grandmother Kidney disease HTN (hypertension) Other Substance use disorder Social History Housing: Apartment Alcohol intake: current Alcohol intake frequency: a few times a week Patient Tobacco Use Status: Current everyday Tobacco user Cigarette Packs Per Day: 0.5 e-Cigarette/Vaping Use: Never Used Substance Use Type: IV Drugs service: No Current occupational status: employed Cognitive needs: No Hearing needs: No Vision needs: No Questionnaire PHQ-9 Over the last 2 weeks, how often have you been bothered by any of the following problems? 1. Little interest or pleasure in doing things: not at all 2. Feeling down, depressed, or hopeless: not at all 3. Trouble falling or staying asleep, or sleeping too much: not at all 4. Feeling tired or having little energy: not at all 5. Poor appetite or overeating: not at all 6. Feeling bad about yourself - or that you are a failure or have let yourself or your family down: not at all 7. Trouble concentrating on things, such as reading the newspaper or watching television: not at all 8. Moving or speaking so slowly that other people could have noticed. Or the opposite - being so fidgety or restless that you have been moving around a lot more than usual: not at all 9. Thoughts that you would be better off or of hurting yourself in some way: not at all Total score: 0 Depression Screening Interpretation: Negative Depression Screening Done: Yes 35810 - PHQ-9 Billing: Yes Source: Developed by Drs. Andrew Simmons, Yulisa Negrete, Cisco Colunga and colleagues, with an educational yolie from [employer]. Thrive Questionnaire Date Thrive assessed: 10/12/25 I am a: Patient What is your living situation today?: I have a steady place to live Within the past 12 months, did the food you bought not last and you didn't have the money to get more?: Never true Within the past 12 months, did you worry whether your food would run out before you got money to buy more?: Never true Do you have trouble paying for medicines?: No Do you have trouble getting transportation to medical appointments?: No Do you have trouble paying your heating and electricity bill?: No Do you have trouble taking care of your child, family member or friend?: No Do you have trouble with day-to-day activities such as bathing, preparing meals, shopping, managing finances, etc.?: No Are you currently unemployed and looking for a job?: No Are you interested in more education?: No THRIVE Score: 0 AUDIT C Alcohol Use Questionnaire (AUDIT-C) 1. How often do you have a drink containing alcohol?: 2-3 times a week 2. How many drinks containing alcohol do you have on a typical day when you are drinking?: 1 or 2 3. How often do you have six or more drinks on one occasion?: Never Total Score: 3 LAINE-7 AMB Questionnaire LAINE-7 Date LAINE - 7 assessed: 10/12/25 Feeling nervous, anxious, or on edge: 0 = Not at all Not being able to stop or control worryin = Not at all Worrying too much about different things: 0 = Not at all Trouble relaxin = Not at all Being so restless that it is hard to sit still: 0 = Not at all Becoming easily annoyed or irritable: 0 = Not at all Feeling afraid as if something awful might happen: 0 = Not at all Total LAINE-7 score (0-4 normal; 5-9 mild; 10-14 moderate; 15-21 severe): 0 Source: Developed by Drs. Andrew Simmons, Yulisa Negrete, Cisco Colunga and colleagues, with an educational yolie from [employer]. LAINE-7 Assessment Billing LAINE-7 Assessment Tool: LAINE-7 Assessment 58466 Physical exam (Primary Care) Vital Signs: Last Vital Signs Temp 98.0 F 10/12/25 14:15 Pulse 87 10/12/25 14:15 Resp 17 10/12/25 14:15 BP 156/100 H 10/12/25 14:15 Pulse Ox 95 10/12/25 14:15 Oxygen Delivery Method Room Air 10/12/25 14:15 BMI result Body Mass Index 31.9 Tobacco/Smoking Status: Tobacco use Status Tobacco use date assessed 10/12/25 10/12/25 14:20 Patient Tobacco Use Status Current everyday Tobacco 10/12/25 14:20 e-Cigarette/Vaping Use Never Used 10/12/25 14:20 PHQ-9: PHQ-9 Score PHQ-9: Total score 0 10/12/25 14:20 Depression Screening Interpretation: Negative Thrive Assessment: Date of Thrive Assessment Date Thrive assessed 10/12/25 10/12/25 14:20 Coding Level of Care Code Est Pt Level 4 (24850) Est Pt Prev Care 40-64y(07493) Diagnoses Encounter for general adult medical examination with abnormal findings Z00.01 Abdominal distension R14.0 Sternum pain R07.89 Hypertension, essential I10 Hepatitis C antibody positive in blood R76.8 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 Intravenous drug abuse F19.10 Heroin addiction F11.20 Additional Codes LAINE-7 Assessment Billing - LAINE-7 Assessment Tool: LAINE-7 Assessment 17093 ([id number]) PHQ-9 - 08013 - PHQ-9 Billing: Yes ([id number]) Assessment & Plan Assessment & Plan (1) Encounter for general adult medical examination with abnormal findings: Code(s): Z00.01 - Encounter for general adult medical examination with abnormal findings Category: Medical (2) Abdominal distension: Code(s): R14.0 - Abdominal distension (gaseous) Category: Medical (3) Sternum pain: Code(s): R07.89 - Other chest pain Category: Medical (4) Hypertension, essential: Code(s): I10 - Essential (primary) hypertension Category: Medical (5) Hepatitis C antibody positive in blood: Code(s): R76.8 - Other specified abnormal immunological findings in serum Category: Medical (6) Methadone use: Code(s): F11.90 - Opioid use, unspecified, uncomplicated Category: Medical (7) Intravenous drug abuse: Code(s): F19.10 - Other psychoactive substance abuse, uncomplicated Category: Social Hx (8) Heroin addiction: Code(s): F11.20 - Opioid dependence, uncomplicated Category: Medical Plan Hypertension: - The patient has a history of hypertension and had previously stopped his medication. - He was seen at a walk-in clinic in September 2025 with a blood pressure of 180/90 mmHg and was restarted on atenolol 50 mg. Substance Use Disorder: - The patient has a history of cocaine and alcohol abuse. - He reports being clean for a year but has had a relapse with heroin, which he injects, and cocaine, which he sniffs. - He is currently on methadone and is working with his counselor regarding his relapse. Chronic GERD: - The patient has a history of chronic GERD and had previously stopped his medication, but was restarted on pantoprazole 20 mg Chronic Hepatitis C: - The patient has a known history of being hepatitis C positive. Ankle Edema - A couple of months ago, his ankle swelled up . - He states the swelling is better but the left ankle is still slightly larger than his other one and is sometimes itchy. Abdominal Wall distenstion and lower sternal lump: - The patient reports a lump on lower part of sternum. - He also reports an area of numbness over his stomach, where he can feel movement but not the sensation of scratching. Congenital Pectus Excavatum: - The patient reports that he was born with a dented sternum. - He denies any injury to the area. Medical History: - Hypertension - Chronic gastroesophageal reflux disease - Cocaine abuse - Alcohol abuse - Heroin abuse - Hepatitis C positive - Pectus excavatum, congenital - abdominal distention Health Maintenance - A flu vaccine was offered, but the patient declined, stating he is currently taking cefdinir. [place] of Care The patient is working with a counselor at his methadone program. Medications - Atenolol 50 mg for hypertension - Pantoprazole 20 mg for chronic GERD - Methadone Employment - The patient reports that Saturday is his only day off. Patient Instructions - Spironolactone 50 mg has been added to your medications; take it in the m orning along with your atenolol. - Continue taking your current dose of atenolol 50 mg. - Go for blood tests and a chest x-ray today. - An ultrasound of your belly will be scheduled for you, and the clinic will let you know the appointment details. - Check out at the patient coordinator front desk to schedule a follow-up appointment in about 10 days to review your results. and to check BP . Orders: Orders Complete Blood Count Auto Diff Today F11.90 - Opioid use, unspecified, uncomplicated, F14.11 - Cocaine abuse, in remission, I10 - Essential (primary) hypertension, R76.8 - Other specified abnormal immunological findings in serum, Z00.01 - Encounter for general adult medical examination with abnormal findings LDL Cholesterol Direct Today F11.90 - Opioid use, unspecified, uncomplicated, F14.11 - Cocaine abuse, in remission, I10 - Essential (primary) hypertension, R76.8 - Other specified abnormal immunological findings in serum, Z00.01 - Encounter for general adult medical examination with abnormal findings Drug Screen Urine Today F14.11 - Cocaine abuse, in remission XR sternum min 2V Today R07.89 - Other chest pain Comprehensive Met. Panel Today F11.90 - Opioid use, unspecified, uncomplicated, F14.11 - Cocaine abuse, in remission, I10 - Essential (primary) hypertension, R76.8 - Other specified abnormal immunological findings in serum, Z00.01 - Encounter for general adult medical examination with abnormal findings TSH reflex Free T4 Today F11.90 - Opioid use, unspecified, uncomplicated, F14.11 - Cocaine abuse, in remission, I10 - Essential (primary) hypertension, R76.8 - Other specified abnormal immunological findings in serum, Z00.01 - Encounter for general adult medical examination with abnormal findings Hepatitis C Viral Load Today R76.8 - Other specified abnormal immunological findings in serum US abdomen complete Today R14.0 - Abdominal distension (gaseous) Medications: New spironolactone (Aldactone) 50 mg PO QAM 30 tabs 0RF
--- OUTSIDE RECORDS SUMMARY | 2025-10-12 15:52 | XMS_ITS | Clinical Summary ---
Author Organization [email or web address] Address [address] [place] [address] Care Team Providers Care Senior Director Name Role Phone Unavailable Primary Care Provider [...]
--- OUTSIDE RECORDS SUMMARY | 2025-10-12 15:52 | XMS_ITS | Clinical Summary ---
Author Organization [facility] Address [address] [place] [id number] Care Team Providers Care Technical Fellow Name Role Phone Angie Padilla MD Primary Care Provider [phone] Surgical History Surgery Date Site/Laterality Comments ELBOW [...] Depression Screening 12/02/2024 COVID-19 Vaccine (1 - 2024-2 6 season) 2025 Influenza Vaccine (#1) 2025 RSV [...] age to complete this topic Care Teams Technical Fellow Relationship Specialty Start Date End Date Angie Padilla MD [address] [place] [id number] PCP - General Internal Medicine 12/02/20
== END 2025-10-12 14:37 | disposition home or self-care (01) ==
LOC: HO.HMCC 14:11
PROVIDERS: PCP Internal Medicine; Visit Provider Internal Medicine
DX: Z00.01 Encounter for general adult medical examination with abnormal findings (principal); R14.0 Abdominal distension (gaseous); F19.10 Other psychoactive substance abuse, uncomplicated; F11.20 Opioid dependence, uncomplicated; R07.89 Other chest pain; I10 Essential (primary) hypertension; R76.89 Other specified abnormal immunological findings in serum; F11.90 Opioid use, unspecified, uncomplicated

== ENCOUNTER → 2025-10-12 14:38 | Outpatient (BNV) | payer OTHER, SELFPAY | PROVIDERS: PCP Internal Medicine; Visit Provider Radiology Diagnostic Radiology | DX: R07.89 Other chest pain (principal) | CPT/HCPCS: 71120 ==

== ENCOUNTER 2025-10-19 15:34 | Outpatient (AMB) | payer OTHER, SELFPAY ==
[2025-10-19 15:37] VITALS: BP 126/90; PULSE 73; RESP 16; O2SAT 95; BMI 31.7
--- NOTE | 2025-10-19 15:37 | A.OFFPC_ITS ---
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 Required: No Accompanied by: Self / Same As Patient Allergies vancomycin Allergy (Severe, Verified 10/19/25 15:38) anaphylaxis Medication List - Last Reconciled 10/19/25 by Angie Padilla MD atenolol 50 mg PO DAILY 90 days blood pressure test kit-large (Quick Response BP Monitor-Large Cuff kit) As directed methadone 120 mg PO DAILY pantoprazole 20 mg PO DAILY spironolactone (Aldactone) 50 mg PO QAM Tobacco use date assessed: 10/19/25 Dental Screening Dental Screen Date: 10/19/25 Did you have a dental visit in the last 12 months?: Yes Did you have a dental problem in the last 6 months where you did not have access to dental care?: No Was dental information given to patient?: Patient has dentist HPI Lab work follow up HPI Details History of Present Illness The patient is a 45-year-old male presenting for a follow-up appointment for hypertension. Hypertension: - The patient's blood pressure has impro art to 126/90 mmHg from a previous reading of 156/100 mmHg. - He is currently taking atenolol 50 mg and spironolactone 50 mg for his blood pressure. Polysubstance use disorder: - A recent toxicology screen was positiv e for opioids, methadone, fentanyl, stacy bonifacio, and marijuana. - The patient acknowledged a relapse and stated he is working with a counselor at the clinic. Elevated liver enzymes: - Alkaline phosphatase has improved, dec reasing to 118 from 396 in July. epigastric lump : - The patient has a Lump for which an ul trasound was ordered on October 12. - He reports that no one has called to s chedule the procedure. Hepatitis C: - The patient has a known history of Hep atitis C. - The viral load was less than 15, indic ating it is not an active infection. Insomnia: - The patient reports significant diffic ulty sleeping, waking up every 45 minutes for reasons other than needing to urinate. also complaining of racing mind, cant get it to quieten, tell me that is why he take the street drugs so he can calm down Medical History: - Hypertension - Hepatitis C, inactive with a viral adriel d of less than 15 - Herpes Simplex Virus - Polysubstance use - History of elevated liver enzymes Medications: - Atenolol 50 mg for hypertension - Spironolactone 50 mg for hypertension - Pantoprazole, indication not specified Diagnostic Results: - CBC: Normal. - Electrolytes: Within normal limits. - Kidney function: Intact. - Liver enzymes: Alkaline phosphatase is 118, improved from 396 in July. - Albumin: 4.6. - LDL: 108. - TSH: Within normal limits. - Urine toxicology screen: Positive for opioids, methadone, fentanyl, cocaine, and marijuana. - Hepatitis C viral load: Less than 15. Problem List - Essential Hypertension - Polysubstance use disorder - Insomnia - racing Mind [ Bipolar ?] - Elevated liver enzymes - Hepatitis C - Herpes simplex infection - Hyperlipidemia - Epigastric lump Plan - The patient will continue his current blood pressure medications. - A prescription for Seroquel 25 mg, 30 tablets, will be sent for insomnia and mood symptoms; the patient is advised to take it at night and may increase the dose to 50 mg after one week if needed. - Follow up will be made with the imagin g department regarding the pending ultrasound order for a subcutaneous nodule. - The patient is encouraged to continue working with his counselor regarding his substance use. - The patient has an upcoming appointmen t to establish care at the [facility], which is closer to his home. Review of Systems - General: No fever no chills - Neurological: No headaches no dizziness - Ear nose throat: No sore throat no hearing difficulty no ear pain - Cardiovascular: No syncope, no chest pain, no palpitations - Gastrointestinal: No nausea vomiting or diarrhea - Endocrine: No polyuria polydipsia no heat intolerance - Genitourinary: No dysuria , no blood in urine Physical Exam General: No acute distress HEENT: No acute findings Neck: Supple Respiratory system: Able to talk in full sentences, no audible wheeze Cardiovascular: S1-S2 regular in rate and rhythm Gastrointestinal: No pain Extremities: No new findings, but patient reports knees snapping ELECTRICAL ELECTRONICS ENGINEER: Alert awake oriented x3 motor intact Skin: Normal turgor [facility] Medical History HTN (hypertension) Surgical History History of arm fracture Family History Father Mesothelioma Paternal Grandmother Lung cancer Maternal Grandmother Kidney disease HTN (hypertension) Other Substance use disorder Social History Housing: Apartment Alcohol intake: current Alcohol intake frequency: a few times a week Patient Tobacco Use Status: Current everyday Tobacco user Cigarette Packs Per Day: 0.5 e-Cigarette/Vaping Use: Never Used Substance Use Type: IV Drugs service: No Current occupational status: employed Cognitive needs: No Hearing needs: No Vision needs: No Questionnaire Thrive Questionnaire Date Thrive assessed: 10/12/25 LAINE-7 AMB Questionnaire LAINE-7 Date LAINE - 7 assessed: 10/12/25 Source: Developed by Drs. Andrew Simmons, Yulisa Negrete, Cisco Colunga and colleagues, with an educational yolie from [id number]. Physical exam (Primary Care) Vital Signs: Last Vital Signs Pulse 73 10/19/25 15:37 Resp 16 10/19/25 15:37 BP 126/90 H 10/19/25 15:37 Pulse Ox 95 10/19/25 15:37 Oxygen Delivery Method Room Air 10/19/25 15:37 BMI result Body Mass Index 31.7 Tobacco/Smoking Status: Tobacco use Status Tobacco use date assessed 10/19/25 10/19/25 15:42 Patient Tobacco Use Status Current everyday Tobacco 10/19/25 15:42 e-Cigarette/Vaping Use Never Used 10/19/25 15:42 Thrive Assessment: Date of Thrive Assessment Date Thrive assessed 10/12/25 10/19/25 15:42 Coding Level of Care Code Est Pt Level 4 (84555) Diagnoses Racing thoughts R41.89 Recurrent major depressive disorder, in partial remission F33.41 Active/Remission status: in partial remission Difficulty sleeping G47.9 Abdominal distension R14.0 Hypertension, essential I10 Hepatitis C antibody positive in blood R76.8 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 Intravenous drug abuse F19.10 Heroin addiction F11.20 Assessment & Plan Assessment & Plan (1) Racing thoughts: Code(s): R41.89 - Other symptoms and signs involving cognitive functions and awareness Category: Medical (2) Major depression, recurrent: Code(s): F33.9 - Major depressive disorder, recurrent, unspecified Category: Medical Qualifiers: Active/Remission status: in partial remission Qualified Code(s): F33.41 - Major depressive disorder, recurrent, in partial remission (3) Difficulty sleeping: Code(s): G47.9 - Sleep disorder, unspecified Category: Medical (4) Abdominal distension: Code(s): R14.0 - Abdominal distension (gaseous) Category: Medical (5) Hypertension, essential: Code(s): I10 - Essential (primary) hypertension Category: Medical (6) Hepatitis C antibody positive in blood: Code(s): R76.8 - Other specified abnormal immunological findings in serum Category: Medical (7) Methadone use: Code(s): F11.90 - Opioid use, unspecified, uncomplicated Category: Medical (8) Intravenous drug abuse: Code(s): F19.10 - Other psychoactive substance abuse, uncomplicated Category: Social Hx (9) Heroin addiction: Code(s): F11.20 - Opioid dependence, uncomplicated Category: Medical Plan Hypertension: - The patient's blood pressure has improved to 126/90 mmHg from a previous reading of 156/100 mmHg. - He is currently taking atenolol 50 mg and spironolactone 50 mg for his blood pressure. Polysubstance use disorder: - A recent toxicology screen was positive for opioids, methadone, fentanyl, cocaine, and marijuana. - The patient acknowledged a relapse and stated he is working with a counselor at the clinic. Elevated liver enzymes: - Alkaline phosphatase has improved, decreasing to 118 from 396 in July. epigastric lump : - The patient has a Lump for which an ultrasound was ordered on October 12. - He reports that no one has called to schedule the procedure. Hepatitis C: - The patient has a known history of Hepatitis C. - The viral load was less than 15, indicating it is not an active infection. Insomnia: - The patient reports significant difficulty sleeping, waking up every 45 minutes for reasons other than needing to urinate. also complaining of racing mind, cant get it to quieten, tell me that is why he take the street drugs so he can calm down Problem List - Essential Hypertension - Polysubstance use disorder - Insomnia - racing Mind [ Bipolar ?] - Elevated liver enzymes - Hepatitis C - Herpes simplex infection - Hyperlipidemia - Epigastric lump Plan - The patient will continue his current blood pressure medications. - A prescription for Seroquel 25 mg, 30 tablets, will be sent for insomnia and mood symptoms; the patient is advised to take it at night and may increase the dose to 50 mg after one week if needed. - Follow up will be made with the imaging department regarding the pending ultrasound order for a subcutaneous nodule. - The patient is encouraged to continue working with his counselor regarding his substance use. - The patient has an upcoming appointment to establish care at the [place] office, which is closer to his home. Medications: New quetiapine (Seroquel) 25 mg PO BEDTIME 30 tabs 0RF
== END 2025-10-19 15:49 | disposition home or self-care (01) ==
LOC: HO.HMCC 15:34
PROVIDERS: PCP Internal Medicine; Visit Provider Internal Medicine
DX: R41.89 Other symptoms and signs involving cognitive functions and awareness (principal); F33.41 Major depressive disorder, recurrent, in partial remission; G47.9 Sleep disorder, unspecified; R14.0 Abdominal distension (gaseous); I10 Essential (primary) hypertension; R76.89 Other specified abnormal immunological findings in serum; F19.10 Other psychoactive substance abuse, uncomplicated; F11.20 Opioid dependence, uncomplicated

== ENCOUNTER → 2025-10-19 15:34 | Outpatient (BNVA) | payer OTHER, SELFPAY | PROVIDERS: PCP Internal Medicine; Visit Provider Internal Medicine | DX: I10 Essential (primary) hypertension (principal); R74.8 Abnormal levels of other serum enzymes; R19.06 Epigastric swelling, mass or lump; G47.00 Insomnia, unspecified; R41.89 Other symptoms and signs involving cognitive functions and awareness; F33.41 Major depressive disorder, recurrent, in partial remission; R76.89 Other specified abnormal immunological findings in serum; F19.10 Other psychoactive substance abuse, uncomplicated; F11.20 Opioid dependence, uncomplicated; Z86.19 Personal history of other infectious and parasitic diseases | CPT/HCPCS: 99212 ==